=== PATIENT | male | born 1945 | race Caucasian/White ===

== ENCOUNTER 2018-09-08 13:16 | Observation (INO) | payer MEDICARE ==
[~2018-09-08] VITALS: Ht 175.3 cm; Wt 86.8 kg
[~2018-09-08 13:16] MED LIST: ASPIRIN81 MG PO; CALCIUM PO; COQ-10100 MG PO; FISH OIL 1,2001 EACH PO; IRON PO; LISINOPRIL10 MG PO; MULTI-VITAMIN1 EACH PO; PANTOPRAZOLE SO40 MG PO; SIMVASTATIN20 MG PO; VITAMIN D PO
[2018-09-08 13:25] VITALS: BP 154/86
[2018-09-08] MEDS ORDERED: MELOXICAM7.5 MG PO (13:35)
[2018-09-08 13:36] VITALS: BP 154/86
--- NOTE | 2018-09-08 13:49 | NUR ---
patient received from outside ER via ambulance. Dr Rashid notified of admit and orders received. see admit assess. sinus rhythm with no complaints of pain at this time. vitals stable.
[2018-09-08 13:51] VITALS: BP 161/86
--- NOTE | 2018-09-08 14:33 | Diagnostic Imaging Report ---
EXAMINATION: CHEST 2 VIEWS INDICATION: Chest pain. COMPARISON: Chest radiograph 01/05/2015. FINDINGS: TUBES and LINES: None. LUNGS: Lungs are well inflated. There is no evidence of pneumonia or pulmonary edema. Mild right basilar scarring is unchanged from prior radiograph on 03/04/2015. PLEURA: No pleural effusion or pneumothorax. HEART AND MEDIASTINUM: The cardiomediastinal silhouette is unremarkable. BONES AND SOFT TISSUES: No acute osseous lesion. Soft tissues are unremarkable. UPPER ABDOMEN: No free air under the diaphragm. IMPRESSION: No acute radiographic abnormality. Signed by: Dr. Pattie Palumbo MD on 09/08/2018 2:30 PM
[2018-09-08 15:01] LABS: BASOPHILS % 0.3 % (0.0-1.0); EOSINOPHILS # (AUTO) 0.2 (0.0-0.4); EOSINOPHILS % 2.5 % (0.0-6.0); HEMATOCRIT 40.3 % (38.2-49.6); HEMOGLOBIN 14.3 g/dL (14.0-18.0); LYMPHOCYTES # (AUTO) 0.8 (1.0-3.2); LYMPHOCYTES % 8.7 % (18.0-39.1); MEAN CORPUSCULAR HEMOGLOBIN 31.1 pg (28-32); MEAN CORPUSCULAR HGB CONC 35.5 g/dL (31-35); MEAN CORPUSCULAR VOLUME 87.6 fL (81-99); MONOCYTES # (AUTO) 0.9 (0.2-0.8); MONOCYTES % 10.1 % (4.4-11.3); NEUTROPHILS # (AUTO) 6.8 (2.1-6.9); NEUTROPHILS % 77.3 % (38.7-80.0); PLATELET COUNT 158 x10e3/uL (140-360); RED CELL DISTRIBUTION WIDTH 11.7 % (11.7-14.4)
[2018-09-08 15:19] LABS: ANION GAP 10.8 mmol/L (8-16); BLOOD UREA NITROGEN 11 mg/dL (7-26); BUN/CREATININE RATIO 12 (6-25); CARBON DIOXIDE 29 mmol/L (22-29); CHLORIDE 95 mmol/L (98-107); EST GLOMERULAR FILTRATION RATE > 60 ML/MIN (60-); GLUCOSE 90 mg/dL (74-118); POTASSIUM 4.8 mmol/L (3.5-5.1); SODIUM 130 mmol/L (136-145)
[2018-09-08] MEDS: HEPARIN SOD (PORCINE) 5,000 UNIT/ML VIAL SC SCH ×2 (15:25→21:04)
[2018-09-08 15:50] LABS: CHOL/HDL RATIO 2.9 (3.9-4.7)
[2018-09-08 15:51] VITALS: BP 159/82
[2018-09-08 16:05] LABS: CREATINE KINASE MB 1.2 ng/mL (0-5.0)
[2018-09-08 16:10] LABS: THYROID STIMULATING HORMONE 1.44 uIU/mL (0.350-4.940)
[2018-09-08] MEDS ORDERED: PANTOPRAZOLE SOD 40 MG TABEC PO SCH (16:30)
[2018-09-08] MEDS: PANTOPRAZOLE SOD 40 MG TABEC PO SCH (16:42)
--- NOTE | 2018-09-08 18:41 | NUR ---
History and Physical cc: cp HPI; 72yoM, pcp , developed precordial chest pain, no sob/dizziness/radiation. no ASA in last 7 days; no FH heart ds. No personal hx CAD. :EKG no ST-T changes; last stress test many yrs ago negative PMH: HTN, GERD PSHx: TKR B/L; b/l hernioraphy, shoulder scope, lung, right foot Allergies; see emr FH: no CAD/OR SH: ; no cigs hx; occ etoh; no illicits mEd;s see MAR ROS: no f/c/s/N/V/D/MCINTYRE/vision changes/leg pain/skin rash v/s; rev'd PE: tired appearing anicteric ns1s2 mod bs soft nt nd no e/t skin dry n. affect a&Ox3; veliz labs/meds rev'd A/P: 72yoM Atypical CP HTN GERD HLD PLAN 1.lovenox/pepcid 2.Heparin/PPI 3.No FH/personal Hx CAD; no ASA in last 7 days; no ST-T changes; Age is >65, no severe angina, CE negative to date; MIKHAIL risk score 1 for age and 1 for HTN= 2. If CE remain negative, then d/c in am and refer to cardiology for outpt stress test. Control BP. Sadi Rashid MD, PhD.
[2018-09-08 20:00] VITALS: BP 137/75
[2018-09-08] MEDS ORDERED: SIMVASTATIN 20 MG TAB PO SCH ×2 (21:00)
[2018-09-08 22:59] VITALS: BP 137/75
[2018-09-09] VITALS (7 sets, daily range): BP systolic 138–179; BP diastolic 72–89
[2018-09-09 00:29] LABS: CREATINE KINASE 107 IU/L (30-200)
[2018-09-09] MEDS: HEPARIN SOD (PORCINE) 5,000 UNIT/ML VIAL SC SCH ×2 (05:07→14:26)
[2018-09-09 06:09] LABS: CREATINE KINASE MB 0.8 ng/mL (0-5.0)
[2018-09-09] MEDS ORDERED: LISINOPRIL 20 MG TAB PO SCH (09:00)
[2018-09-09] MEDS ORDERED: LISINOPRIL 10 MG TAB PO SCH (09:00)
[2018-09-09] MEDS ORDERED: ASPIRIN 325 MG TAB PO SCH (09:00)
[2018-09-09] MEDS ORDERED: MELOXICAM 7.5 MG TAB PO SCH (09:00)
[2018-09-09] MEDS ORDERED: MULTIVITAMINS/MINERALS TAB PO SCH (09:00)
[2018-09-09] MEDS: PANTOPRAZOLE SOD 40 MG TABEC PO SCH ×2 (09:31→17:03)
--- NOTE | 2018-09-09 10:28 | NUR ---
SOCIAL WORK INITIAL ASSESSMENT Spin Instructor to bedside to discuss plan of care with patient/family. CM/SW role and care transitions discussed. Anticipated discharge plan discussed along with duration of care. CM/SW discussed patients right to make decisions in care. CM/SW work hours given. Patient lives: IN HOUSE WITH FAMILY Admit/Transfer: VIA ED POA/Emergency contact: CASANDRA [phone] Current/Previous Home Health: NONE PCP/Follow-up Care: [facility] Current/Previous DME: HAS WALKER FROM PRIOR KNEE SURGERY BUT DOESNT USE Other Services: NONE Employment Status: RETIRED Areas of Concerns: NONE Referral Needs: NONE Education Needs: NONE IMM/MU[place] given and signed (if applicable): UPON ADMISSION Goal for discharge: RETURN HOME CM/SW left business card at the bedside with contact information. Name and number was also written on the patients whiteboard. Patient verbalized understanding of discussion. CM will follow-up with ongoing discharge and transition of care needs.
[2018-09-09] MEDS ORDERED: ASPIR 8181 MG PO (13:52)
[2018-09-09 14:07] LABS: CREATINE KINASE MB 0.6 ng/mL (0-5.0)
== END 2018-09-09 18:21 | disposition home or self-care (01) ==
LOC: IMCU 13:16
PROVIDERS: ADMIT Internal Medicine; ATTEND Internal Medicine
DX: R07.89 Other chest pain (principal); K21.9 Gastro-esophageal reflux disease without esophagitis; E78.5 Hyperlipidemia, unspecified; Z88.0 Allergy status to penicillin; Z96.653 Presence of artificial knee joint, bilateral
CPT/HCPCS: 36415 ×2; 71046; 80048; 80061; 82550 ×2; 82553 ×2; 84443; 84484 ×2; 85025; 93306; G0378 ×2; J1644 ×2; S0164 ×2

== ENCOUNTER → 2021-01-28 | Outpatient (CLI) | payer MEDICARE ==
[~2021-01-28] MED LIST changes: +ASPIR 8181 MG PO; +MELOXICAM7.5 MG PO
== END ==
LOC: MRI 10:29
PROVIDERS: ATTEND Family Medicine
DX: M48.062 Spinal stenosis, lumbar region with neurogenic claudication (principal); M47.26 Other spondylosis with radiculopathy, lumbar region; R20.2 Paresthesia of skin
CPT/HCPCS: 72148

== ENCOUNTER → 2021-02-10 | Day surgery (SDC) | payer MEDICARE ==
[2021-02-07 12:09] LABS: BASOPHILS # (AUTO) 0.1 (0.0-0.1); BASOPHILS % 0.8 % (0.0-1.0); EOSINOPHILS # (AUTO) 0.3 (0.0-0.4); EOSINOPHILS % 3.4 % (0.0-6.0); HEMATOCRIT 42.8 % (38.2-49.6); HEMOGLOBIN 14.4 g/dL (14.0-18.0); LYMPHOCYTES % 12.5 % (18.0-39.1); MEAN CORPUSCULAR HEMOGLOBIN 30.5 pg (28-32); MEAN CORPUSCULAR HGB CONC 33.6 g/dL (31-35); MEAN CORPUSCULAR VOLUME 90.7 fL (81-99); MONOCYTES # (AUTO) 0.6 (0.2-0.8); NEUTROPHILS # (AUTO) 5.9 (2.1-6.9); NEUTROPHILS % 74.4 % (38.7-80.0); PLATELET COUNT 213 x10e3/uL (140-360); RED BLOOD COUNT 4.72 x10e6/uL (4.3-5.7); RED CELL DISTRIBUTION WIDTH 11.9 % (11.7-14.4)
[2021-02-07 12:21] LABS: INR 0.94; PROTHROMBIN TIME 13.2 seconds (11.9-14.5)
[2021-02-07 12:26] LABS: PARTIAL THROMBOPLASTIN TIME 34.9 seconds (23.8-35.5)
[2021-02-07 12:28] LABS: ANION GAP 15.4 mmol/L (8-16); CALCIUM 9.7 mg/dL (8.4-10.2); CREATININE, SERUM 0.92 mg/dL (0.72-1.25); POTASSIUM 4.4 mmol/L (3.5-5.1)
[~2021-02-10] MED LIST changes: +ACETAMINOPHEN 1000 MG/100 ML 100 ML IV ONE; +ACETAMINOPHEN 325 MG TAB PO PRN; +AMLODIPINE BESYL5 MG PO; +AMLODIPINE BESYLATE 5 MG TAB PO SCH; +ATROPINE SULFATE 1 MG/ML VIAL ONE; +CARISOPRODOL 350 MG TAB PO PRN; +DEXAMETHASONE SOD PHOS INJ 4 MG/ML VIAL ONE; +HYDROCODON-ACE1 EA12 PO; +HYDROCODON-ACE1 EAC9 PO; +KETOROLAC TROMETHAMINE 30 MG/ML VIAL ONE; +LACTATED RINGER'S 1,000 ML IV SCH; +LIDOCAINE 1% W/EPINEPHRINE 20 ML VIAL ONE; +LIDOCAINE HCL 2% LOCAL INJ 5 ML SDV VIAL INJ ONE; +LISINOPRIL 20 MG TAB PO SCH; +MAGNESIUM/ALUMINUM/SIMETHICONE 30 ML UDC PO PRN; +MELOXICAM 7.5 MG TAB PO SCH; +MORPHINE SULFATE INJ 2 MG/ML SYR IV PRN; +NEOSTIGMINE 1 MG/ML 10ML VIAL ONE; +ONDANSETRON HCL INJ 2MG/ML 2ML 2 MG/ML VIAL IV PRN; +ONDANSETRON HCL INJ 2MG/ML 2ML 2 MG/ML VIAL ONE; +OXYCODONE/ACETAMINOPHEN 5-325 1 EACH TABLET PO PRN; +PANTOPRAZOLE SOD 40 MG TABEC PO SCH; +POVIDONE IODINE 0.05% 0.05 % ML PO ONE; +PROMETHAZINE HCL (IM) 25 MG/ML VIAL IM PRN; +PROPOFOL IV EMULSION 10 MG/ML 20 ML VIAL ONE; +ROCURONIUM BROMIDE 10 MG/ML 5ML VIAL IV ONE; +SEVOFLURANE INHAL SOLN 250 ML PEN BTL ONE; +SIMVASTATIN 20 MG TAB PO SCH; +SODIUM CHLORIDE 0.9% 250ML 250 ML ONE; +THROMBIN FOR SOLN 5,000 UNIT VIAL ONE; +Vancomycin IV 1 GM VIAL ONE; +ZOLPIDEM TARTRATE 5 MG TAB PO PRN
[2021-02-10 13:20] VITALS: BP 137/72
== END | disposition home or self-care (01) ==
LOC: OR 06:04
PROVIDERS: ATTEND Neurological Surgery
DX: M51.16 Intervertebral disc disorders with radiculopathy, lumbar region (principal); Z88.0 Allergy status to penicillin; Z88.2 Allergy status to sulfonamides; I10 Essential (primary) hypertension; E78.5 Hyperlipidemia, unspecified; Z96.653 Presence of artificial knee joint, bilateral; Z01.810 Encounter for preprocedural cardiovascular examination; Z01.812 Encounter for preprocedural laboratory examination; Z01.818 Encounter for other preprocedural examination
CPT/HCPCS: 36415; 63047; 71046; 72020; 80048; 85025; 85610; 85730; 86850; 86900; 88304; 88311; 93005; J0131; J0461; J1100; J1885; J2001; J2405; J2704; J2710; J3370; J7050

== ENCOUNTER → 2021-03-15 | Outpatient (RCR) | payer MEDICARE ==
[~2021-03-15] MED LIST changes: -ACETAMINOPHEN 1000 MG/100 ML 100 ML IV ONE; -ACETAMINOPHEN 325 MG TAB PO PRN; -AMLODIPINE BESYLATE 5 MG TAB PO SCH; -ATROPINE SULFATE 1 MG/ML VIAL ONE; -CARISOPRODOL 350 MG TAB PO PRN; -DEXAMETHASONE SOD PHOS INJ 4 MG/ML VIAL ONE; -KETOROLAC TROMETHAMINE 30 MG/ML VIAL ONE; -LACTATED RINGER'S 1,000 ML IV SCH; -LIDOCAINE 1% W/EPINEPHRINE 20 ML VIAL ONE; -LIDOCAINE HCL 2% LOCAL INJ 5 ML SDV VIAL INJ ONE; -LISINOPRIL 20 MG TAB PO SCH; -MAGNESIUM/ALUMINUM/SIMETHICONE 30 ML UDC PO PRN; -MELOXICAM 7.5 MG TAB PO SCH; -MORPHINE SULFATE INJ 2 MG/ML SYR IV PRN; -NEOSTIGMINE 1 MG/ML 10ML VIAL ONE; -ONDANSETRON HCL INJ 2MG/ML 2ML 2 MG/ML VIAL IV PRN; -ONDANSETRON HCL INJ 2MG/ML 2ML 2 MG/ML VIAL ONE; -OXYCODONE/ACETAMINOPHEN 5-325 1 EACH TABLET PO PRN; -PANTOPRAZOLE SOD 40 MG TABEC PO SCH; -POVIDONE IODINE 0.05% 0.05 % ML PO ONE; -PROMETHAZINE HCL (IM) 25 MG/ML VIAL IM PRN; -PROPOFOL IV EMULSION 10 MG/ML 20 ML VIAL ONE; -ROCURONIUM BROMIDE 10 MG/ML 5ML VIAL IV ONE; -SEVOFLURANE INHAL SOLN 250 ML PEN BTL ONE; -SIMVASTATIN 20 MG TAB PO SCH; -SODIUM CHLORIDE 0.9% 250ML 250 ML ONE; -THROMBIN FOR SOLN 5,000 UNIT VIAL ONE; -Vancomycin IV 1 GM VIAL ONE; -ZOLPIDEM TARTRATE 5 MG TAB PO PRN
== END ==
LOC: PT 02-28 15:54
PROVIDERS: ATTEND Neurological Surgery
DX: M51.16 Intervertebral disc disorders with radiculopathy, lumbar region (principal)
CPT/HCPCS: 29240

== ENCOUNTER 2021-03-24 13:54 | Outpatient (RCR) | payer MEDICARE | END 2021-04-14 | LOC: PT 13:54 | PROVIDERS: ATTEND Neurological Surgery | DX: M51.16 Intervertebral disc disorders with radiculopathy, lumbar region (principal) ==